=== PATIENT | female | born 1995 | race Caucasian/White ===

== ENCOUNTER 2019-03-31 19:23 | Emergency (ER) | payer BC ==
--- NOTE | 2019-03-31 19:26 | ERPHSYRPT ---
- History of Present Illness Time Seen by Provider: 03/31/19 19:26 Historian: patient, family Exam Limitations: no limitations Physician History: 23 y/o white female presents with n/v and malaise intermittently over 3 weeks times. sx worse last couple of days. pt has been seen at [facility]. negative acute hepatitis panel, elevated lfts and negative mono screen. pt has had a mild cough. denies pain of any kind. Timing/Duration: week(s) (3), intermittent, worse Abdominal Pain Onset Location: other (none) Pain Radiation: no radiation Severity of Pain-Max: none Severity of Pain-Current: none Associated Symptoms: loss of appetite, nausea, vomiting, weakness Previous symptoms: same symptoms as today Allergies/Adverse Reactions: No Known Drug Allergies Allergy (Unverified 03/31/19 19:50) Home Medications: Albuterol Sulfate Mdi [Proair Hfa MDI] 1 puff PO QID 03/31/19 [History] Amoxicillin/Potassium Clav [Amox-Clav 500-125 mg Tablet] 500 mg PO TID 03/31/19 [History] - Review of Systems Constitutional: Malaise, Weakness Eyes: No Symptoms Ears, Nose, & Throat: No Symptoms Respiratory: Cough (mild) Cardiac: No Symptoms Abdominal/Gastrointestinal: Nausea, Vomiting Genitourinary Symptoms: No Symptoms Musculoskeletal: Arthralgias, Myalgias Skin: No Symptoms Neurological: No Symptoms Psychological: No Symptoms Endocrine: No Symptoms Hematologic/Lymphatic: No Symptoms Immunological/Allergic: No Symptoms All Other Systems: Reviewed and Negative - Past Medical History Neurological History: No Pertinent History ENT History: No Pertinent History Cardiac History: No Pertinent History Respiratory History: No Pertinent History Endocrine Medical History: No Pertinent History Musculoskeletal History: No Pertinent History GI Medical History: No Pertinent History History: No Pertinent History Psycho-Social History: No Pertinent History Female Reproductive Disorders: No Pertinent History - Past Surgical History Neuro Surgical History: No Pertinent History Cardiac: No Pertinent History Respiratory: No Pertinent History Gastrointestinal: No Pertinent History Genitourinary: No Pertinent History Musculoskeletal: No Pertinent History Female Surgical History: No Pertinent History - Nursing Vital Signs Nursing Vital Signs: Initial Vital Signs Temperature 97.3 F 03/31/19 19:35 Pulse Rate 93 H 03/31/19 19:35 Respiratory Rate 18 03/31/19 19:35 Blood Pressure 121/76 03/31/19 19:35 O2 Sat by Pulse Oximetry 95 03/31/19 19:35 Pain Scale Pain Intensity 0 - Physical Exam General Appearance: mild distress, alert, anxiety Eye Exam: PERRL/EOMI, eyes nml inspection Ears, Nose, Throat Exam: normal ENT inspection, TMs normal, pharynx normal, dry mucous membranes Neck Exam: normal inspection, non-tender, supple, full range of motion Respiratory Exam: normal breath sounds, lungs clear, airway intact, No chest tenderness, No respiratory distress Cardiovascular Exam: regular rate/rhythm, normal heart sounds, normal peripheral pulses Gastrointestinal/Abdomen Exam: soft, normal bowel sounds, No tenderness Pelvic Exam: not done Rectal Exam: not done Back Exam: normal inspection, normal range of motion, No CVA tenderness, No vertebral tenderness Extremity Exam: normal inspection, normal range of motion, pelvis stable Neurologic Exam: alert, oriented x 3, cooperative, boom tender II-XII nml as tested Skin Exam: normal color, warm, dry Lymphatic Exam: No adenopathy SpO2 Interpretation: normal O2 Delivery: Room Air - Course Nursing assessment & vital signs reviewed: Yes Ordered Tests: Active Orders 24 hr Category Date Time Status IV Insertion STAT Care 03/31/19 20:13 Active AMYLASE Stat Lab 03/31/19 20:34 Completed CBC W DIFF Stat Lab 03/31/19 20:34 Completed CMP Stat Lab 03/31/19 20:34 Completed HCG,QUALITATIVE URINE Stat Lab 03/31/19 20:34 Completed LIPASE Stat Lab 03/31/19 20:34 Completed Lactic Acid Stat Lab 03/31/19 20:28 Completed Manual Differential NC Stat Lab 03/31/19 20:34 Completed Desha Screen Stat Lab 03/31/19 20:34 Completed UA W/RFX UR CULTURE Stat Lab 03/31/19 20:34 Completed Medication Summary Generic Name Dose Route Start Last Admin Trade Name Freq PRN Reason Stop Dose Admin Sodium Chloride 1,000 mls @ 999 mls/hr 03/31/19 21:28 03/31/19 21:51 Sodium Chloride 0.9% 1000 Ml IV 03/31/19 22:28 999 mls/hr .Q1H1M STA Administration Discontinued Medications Generic Name Dose Route Start Last Admin Trade Name Freq PRN Reason Stop Dose Admin Famotidine 40 mg 03/31/19 20:13 03/31/19 20:42 Pepcid 20 Mg Vial IV 03/31/19 20:14 40 mg STAT ONE Administration Famotidine Confirm 03/31/19 20:31 Pepcid 20 Mg Vial Administered 03/31/19 20:32 Dose 20 mg IV .STK-MED ONE Famotidine Confirm 03/31/19 20:43 Pepcid 20 Mg Vial Administered 03/31/19 20:44 Dose 20 mg IV .STK-MED ONE Sodium Chloride 1,000 mls @ 999 mls/hr 03/31/19 20:13 03/31/19 20:41 Sodium Chloride 0.9% 1000 Ml IV 03/31/19 21:13 999 mls/hr .Q1H1M STA Administration Sodium Chloride Confirm 03/31/19 20:32 Sodium Chloride 0.9% 1000 Ml Administered 03/31/19 20:33 Dose 1,000 mls @ ud .ROUTE .STK-MED ONE Sodium Chloride Confirm 03/31/19 21:49 Sodium Chloride 0.9% 1000 Ml Administered 03/31/19 21:50 Dose 1,000 mls @ ud .ROUTE .STK-MED ONE Ondansetron HCl 4 mg 03/31/19 20:13 03/31/19 20:42 Zofran 4 Mg/2 Ml Vial IV 03/31/19 20:14 4 mg STAT ONE Administration Ondansetron HCl Confirm 03/31/19 20:31 Zofran 4 Mg/2 Ml Vial Administered 03/31/19 20:32 Dose 4 mg .ROUTE .STK-MED ONE Lab/Rad Data: Laboratory Result Diagrams 03/31/19 20:34 03/31/19 20:34 Laboratory Results 03/31/19 03/31/19 03/31/19 Range/Units 20:50 20:34 20:34 WBC (4.0-10.5) K/mm3 RBC (4.1-5.4) M/mm3 Hgb (12.0-16.0) gm/dl Hct (35-47) % MCV (78-100) fl MCH (26-32) pg MCHC (32-36) g/dl RDW (11.5-14.0) % Plt Count (150-450) K/mm3 MPV (6-9.5) fl Eos # (Auto) (0-0.5) Segmented Neutrophils (36.0-66.0) % Band Neutrophils (0.0-2.0) % Lymphocytes (Manual) (24-44) % Monocytes (Manual) (0.0-12.0) % Basophils # (0-0.4) Atypical Lymphocytes % Hypochromia Platelet Estimate (NORMAL) RBC Morphology Sodium (137-145) mmol/L Potassium (3.5-5.1) mmol/L Chloride (98-107) mmol/L Carbon Dioxide (22-30) mmol/L Anion Gap (5-15) MEQ/L BUN (7-17) mg/dL Creatinine (0.52-1.04) mg/dL Estimated GFR ML/MIN Glucose (74-106) mg/dL Lactic Acid (0.4-2.0) Calcium (8.4-10.2) mg/dL Total Bilirubin (0.2-1.3) mg/dL AST (14-36) U/L ALT (0-35) U/L Alkaline Phosphatase (38-126) U/L Serum Total Protein (6.3-8.2) g/dL Albumin (3.5-5.0) g/dL Amylase (30-110) U/L Lipase (23-300) U/L Urine Color WALTER (YELLOW) Urine Appearance SLIGHTLY CLOUDY (CLEAR) Urine pH 7.0 (5-6) Ur Specific [place] 1.011 (1.005-1.025) Urine Protein NEGATIVE (Negative) Urine Ketones NEGATIVE (NEGATIVE) Urine Blood NEGATIVE (0-5) Byron/ul Urine Nitrite NEGATIVE (NEGATIVE) Urine Bilirubin NEGATIVE (NEGATIVE) Urine Urobilinogen 4 (0-1) mg/dL Ur Leukocyte Esterase NEGATIVE (NEGATIVE) Urine WBC (Auto) 0-2 (0-5) /HPF Urine RBC (Auto) 3-5 (0-2) /HPF U Epithel Cells (Auto) NONE (FEW) /HPF Urine Bacteria (Auto) NONE (NEGATIVE) /HPF Amorphous Crystals FEW (NEGATIVE) /HPF Urine Mucus (Auto) SLIGHT (NEGATIVE) /HPF Urine Culture Reflexed NO (NO) Urine Glucose NEGATIVE (NEGATIVE) mg/dL Urine HCG, Qual NEGATIVE (Negative) Monoscreen (Negative) Influenza Type A Ag NEGATIVE (NEGATIVE) Influenza Type B Ag NEGATIVE (NEGATIVE) RSV (PCR) NEGATIVE (Negative) Group A Strep Antibody NEGATIVE (NEGATIVE) 03/31/19 03/31/19 03/31/19 Range/Units 20:34 20:34 20:34 WBC 14.2 H (4.0-10.5) K/mm3 RBC 4.25 (4.1-5.4) M/mm3 Hgb 11.0 L (12.0-16.0) gm/dl Hct 34.7 L (35-47) % MCV 81.6 (78-100) fl MCH 25.8 L (26-32) pg MCHC 31.7 L (32-36) g/dl RDW 16.7 H (11.5-14.0) % Plt Count 227 (150-450) K/mm3 MPV 8.5 (6-9.5) fl Eos # (Auto) 0.03 (0-0.5) Segmented Neutrophils 11 L (36.0-66.0) % Band Neutrophils 1 (0.0-2.0) % Lymphocytes (Manual) 53 H (24-44) % Monocytes (Manual) 1 (0.0-12.0) % Basophils # 0.02 (0-0.4) Atypical Lymphocytes 34 % Hypochromia 1+ Platelet Estimate NORMAL (NORMAL) RBC Morphology ABNORMAL Sodium 138 (137-145) mmol/L Potassium 3.6 (3.5-5.1) mmol/L Chloride 99 (98-107) mmol/L Carbon Dioxide 30 (22-30) mmol/L Anion Gap 12.5 (5-15) MEQ/L BUN 9 (7-17) mg/dL Creatinine 0.57 (0.52-1.04) mg/dL Estimated GFR > 60.0 ML/MIN Glucose 120 H (74-106) mg/dL Lactic Acid (0.4-2.0) Calcium 8.4 (8.4-10.2) mg/dL Total Bilirubin 1.70 H (0.2-1.3) mg/dL AST 323 H (14-36) U/L ALT 462 H (0-35) U/L Alkaline Phosphatase 267 H (38-126) U/L Serum Total Protein 7.7 (6.3-8.2) g/dL Albumin 3.6 (3.5-5.0) g/dL Amylase 93 (30-110) U/L Lipase 321 H (23-300) U/L Urine Color (YELLOW) Urine Appearance (CLEAR) Urine pH (5-6) Ur Specific [place] (1.005-1.025) Urine Protein (Negative) Urine Ketones (NEGATIVE) Urine Blood (0-5) Byron/ul Urine Nitrite (NEGATIVE) Urine Bilirubin (NEGATIVE) Urine Urobilinogen (0-1) mg/dL Ur Leukocyte Esterase (NEGATIVE) Urine WBC (Auto) (0-5) /HPF Urine RBC (Auto) (0-2) /HPF U Epithel Cells (Auto) (FEW) /HPF Urine Bacteria (Auto) (NEGATIVE) /HPF Amorphous Crystals (NEGATIVE) /HPF Urine Mucus (Auto) (NEGATIVE) /HPF Urine Culture Reflexed (NO) Urine Glucose (NEGATIVE) mg/dL Urine HCG, Qual (Negative) Monoscreen POSITIVE (Negative) Influenza Type A Ag (NEGATIVE) Influenza Type B Ag (NEGATIVE) RSV (PCR) (Negative) Group A Strep Antibody (NEGATIVE) 03/31/19 Range/Units 20:28 WBC (4.0-10.5) K/mm3 RBC (4.1-5.4) M/mm3 Hgb (12.0-16.0) gm/dl Hct (35-47) % MCV (78-100) fl MCH (26-32) pg MCHC (32-36) g/dl RDW (11.5-14.0) % Plt Count (150-450) K/mm3 MPV (6-9.5) fl Eos # (Auto) (0-0.5) Segmented Neutrophils (36.0-66.0) % Band Neutrophils (0.0-2.0) % Lymphocytes (Manual) (24-44) % Monocytes (Manual) (0.0-12.0) % Basophils # (0-0.4) Atypical Lymphocytes % Hypochromia Platelet Estimate (NORMAL) RBC Morphology Sodium (137-145) mmol/L Potassium (3.5-5.1) mmol/L Chloride (98-107) mmol/L Carbon Dioxide (22-30) mmol/L Anion Gap (5-15) MEQ/L BUN (7-17) mg/dL Creatinine (0.52-1.04) mg/dL Estimated GFR ML/MIN Glucose (74-106) mg/dL Lactic Acid 1.4 (0.4-2.0) Calcium (8.4-10.2) mg/dL Total Bilirubin (0.2-1.3) mg/dL AST (14-36) U/L ALT (0-35) U/L Alkaline Phosphatase (38-126) U/L Serum Total Protein (6.3-8.2) g/dL Albumin (3.5-5.0) g/dL Amylase (30-110) U/L Lipase (23-300) U/L Urine Color (YELLOW) Urine Appearance (CLEAR) Urine pH (5-6) Ur Specific [place] (1.005-1.025) Urine Protein (Negative) Urine Ketones (NEGATIVE) Urine Blood (0-5) Byron/ul Urine Nitrite (NEGATIVE) Urine Bilirubin (NEGATIVE) Urine Urobilinogen (0-1) mg/dL Ur Leukocyte Esterase (NEGATIVE) Urine WBC (Auto) (0-5) /HPF Urine RBC (Auto) (0-2) /HPF U Epithel Cells (Auto) (FEW) /HPF Urine Bacteria (Auto) (NEGATIVE) /HPF Amorphous Crystals (NEGATIVE) /HPF Urine Mucus (Auto) (NEGATIVE) /HPF Urine Culture Reflexed (NO) Urine Glucose (NEGATIVE) mg/dL Urine HCG, Qual (Negative) Monoscreen (Negative) Influenza Type A Ag (NEGATIVE) Influenza Type B Ag (NEGATIVE) RSV (PCR) (Negative) Group A Strep Antibody (NEGATIVE) - Progress Progress: improved, re-examined Counseled pt/family regarding: lab results, diagnosis, need for follow-up, rad results - Departure Departure Disposition: Home Clinical Impression: Mononucleosis syndrome Condition: Stable Critical Care Time: No Referrals: Provider,Unknown [Primary Care Provider] - Additional Instructions: clear liquids. follow up with primary doctor for further management. keep your neurologist appointment on Saturday04/03/19 Prescriptions: Ondansetron ODT 4 MG [Zofran Odt 4 mg] 4 mg PO Q6H PRN PRN #10 tab.rapdis PRN Reason: Vomiting
[2019-03-31] MEDS ORDERED: Pepcid 20 MG VIAL IV ONE ×3 (20:13→20:43)
[2019-03-31] MEDS ORDERED: Sodium Chloride 0.9% 1000 ML 1,000 ML IV STA ×2 (20:13→21:28)
[2019-03-31] MEDS ORDERED: Zofran 4 MG/2 ML VIAL IV ONE (20:13)
[2019-03-31] MEDS ORDERED: Zofran 4 MG/2 ML VIAL ONE (20:31)
[2019-03-31] MEDS ORDERED: Sodium Chloride 0.9% 1000 ML 1,000 ML ONE ×2 (20:32→21:49)
[2019-03-31 20:38] LABS: Basophil (Absolute #) 0.02 (0-0.4); Eosinophil (Absolute #) 0.03 (0-0.5); Hematocrit 34.7 % (35-47); Mean Cell Volume 81.6 fl (78-100); Mean Corpuscular Hgb Concent. 31.7 g/dl (32-36); Mean Platelet Volume 8.5 fl (6-9.5); Platelet Count 227 K/mm3 (150-450); Red Blood Count 4.25 M/mm3 (4.1-5.4); Red Cell Distribution Width 16.7 % (11.5-14.0); White Blood Count 14.2 K/mm3 (4.0-10.5)
[2019-03-31 20:44] LABS: Mean Corpuscular Hemoglobin 25.8 pg (26-32)
[2019-03-31 20:57] LABS: ALBUMIN 3.6 g/dL (3.5-5.0); ALKALINE PHOSPHATASE 267 U/L (38-126); AMYLASE 93 U/L (30-110); ANION GAP 12.5 MEQ/L (5-15); Amourphous Crystal FEW /HPF (NEGATIVE); Appearance SLIGHTLY CLOUDY (CLEAR); BLOOD UREA NITROGEN 9 mg/dL (7-17); Bilirubin NEGATIVE (NEGATIVE); Blood NEGATIVE Ery/ul (0-5); CHLORIDE 99 mmol/L (98-107); Calcium 8.4 mg/dL (8.4-10.2); Carbon Dioxide 30 mmol/L (22-30); Creatinine 1 0.57 mg/dL (0.52-1.04); Glucose 120 mg/dL (74-106); Glucose NEGATIVE (NEGATIVE); Ketones NEGATIVE (NEGATIVE); LIPASE 321 U/L (23-300); Leukocyte Esterase NEGATIVE (NEGATIVE); Mucus SLIGHT /HPF (NEGATIVE); Nitrite NEGATIVE (NEGATIVE); Potassium 3.6 mmol/L (3.5-5.1); Protein,Urine Dip NEGATIVE (Negative); SGOT/AST 323 U/L (14-36); SGPT/ALT 462 U/L (0-35); SODIUM 138 mmol/L (137-145); Specific Gravity 1.011 (1.005-1.025); Total Protein 7.7 g/dL (6.3-8.2); Urobilinogen 4 mg/dL (0-1); WBC 0-2 /HPF (0-5)
[2019-03-31 21:21] LABS: Group A Strep NEGATIVE (NEGATIVE); INFLUENZA A NEGATIVE (NEGATIVE); INFLUENZA B NEGATIVE (NEGATIVE); RESPIRATORY SYNCTIAL VIRUS NEGATIVE (Negative)
[2019-03-31 21:24] LABS: ATYPICAL LYMPHS 34 %; BAND 1 % (0.0-2.0); Hypochromia 1+; Lymphocytes 53 % (24-44); Monocyte 1 % (0.0-12.0); Neutrophils 11 % (36.0-66.0); Platelet Estimate NORMAL (NORMAL); Total Cells Counted 100
[2019-03-31 22:35] VITALS: BP 118/71; PULSE 89; O2SAT 97
== END 2019-03-31 23:21 | disposition home or self-care (01) ==
LOC: ED 19:23
DX: B27.90 Infectious mononucleosis, unspecified without complication (principal)
CPT/HCPCS: 36000; 36415; 80053; 81001; 82150; 83605; 83690; 84703; 85025; 86308; 87631; 87651; 96374; 96375; 99284; J2405